=== PATIENT | male | born 1955 | race Caucasian/White ===

== ENCOUNTER 2024-11-13 11:40 | Emergency (ER) | payer MEDICARE ==
[2024-11-13 12:46] LABS: HEMATOCRIT 39.2 % (38.3-50.1); HEMOGLOBIN 13.9 g/dL (12.9-17.7); MEAN CORPUSCULAR HEMOGLOBIN 35.4 pg (27.0-33.3); MEAN CORPUSCULAR HGB CONC 35.3 g/dL (28.7-35.3); MEAN CORPUSCULAR VOLUME 100.3 fL (80.8-98.7); MEAN PLATELET VOLUME 7.4 fL (6.7-11.0); PLATELET COUNT,PLT 224 x10(3)uL (117-477); RED BLOOD CELL COUNT 3.91 x10(6)uL (3.90-5.90); RED CELL DISTRIBUTION WIDTH 14.1 % (12.4-15.0); WHITE BLOOD CELL COUNT,WBC 10.6 x10-3/uL (3.2-10.1)
[2024-11-13 12:47] LABS: BLOOD UREA NITROGEN,BUN 25 mg/dL (7-18); BUN/CREATININE RATIO 17.9 (9-20); CALCIUM 9.1 mg/dL (8.6-10.2); CARBON DIOXIDE,CO2 27 mmol/L (21-32); CHLORIDE,CL 101 mmol/L (100-110); CREATININE 1.4 mg/dL (0.70-1.30); ESTIMATED GFR 54 mL/min (>60); GLUCOSE RANDOM 101 mg/dL (80-116); POTASSIUM,K 4.5 mmol/L (3.5-5.3); SODIUM,NA 134 mmol/L (135-145)
[2024-11-13 12:49] LABS: INR 1.92 (1.00-1.24); PROTHROMBIN TIME 18.9 sec (9.0-11.1)
[2024-11-13 12:53] LABS: A/G RATIO 0.9; ALANINE AMINOTRANSFERASE,ALT 32 U/L (12-36); ALBUMIN 3.6 g/dL (3.2-4.6); ALKALINE PHOSPHATASE 48 IU/L (56-112); ASPARTATE AMNIOTRANSFERASE,AST 26 IU/L (5-25); BILIRUBIN TOTAL 0.6 mg/dL (0.1-1.3); PROTEIN TOTAL,TP 7.6 g/dL (6.0-8.0)
[2024-11-13] MEDS: Sodium Chloride 0.9% 10 ML Syringe FLUSH PRN (13:15)
[2024-11-13] MEDS: methylPREDNISolone Sodium Succinate 125 MG/2 ML SDV IVPUSH ONE (13:15)
[2024-11-13 13:18] LABS: BILIRUBIN,URINE NEGATIVE (NEGATIVE); GLUCOSE,URINE NORMAL (NORMAL); KETONES,URINE NEGATIVE (NEGATIVE); LEUKOCYTE ESTERASE,URINE NEGATIVE (NEGATIVE); NITRITE,URINE NEGATIVE (NEGATIVE); OCCULT BLOOD,URINE LARGE (NEGATIVE); PH,URINE 6.5 (5.0-6.5); PROTEIN,URINE NEGATIVE (NEGATIVE); UROBILINOGEN,URINE NORMAL (NEGATIVE)
[2024-11-13 13:22] LABS: APPEARANCE,URINE SLIGHTLY CLOUDY (CLEAR); COLOR,URINE YELLOW (YELLOW)
[2024-11-13 13:31] LABS: WBC,URINE 0-5 (0-5)
[2024-11-13 13:32] LABS: BACTERIA,URINE RARE (NS); SQUAMOUS EPITHELIAL CELLS,UR RARE (NS,R,O)
[2024-11-13 13:40] LABS: EOSINOPHILS PERCENT MAN 3 % (0-5); LYMPHOCYTES PERCENT MAN 5 % (13-37); MONOCYTES PERCENT MAN 5 % (4-12); NRBC MANUAL 1 /100WBC (0-0); SEG NEUTROPHILS PERCENT MAN 87 % (46-82)
== END 2024-11-13 13:37 | disposition home or self-care (01) ==
LOC: FB.ED 11:40
DX: C76.0 Malignant neoplasm of head, face and neck (principal); T45.1X5A Adverse effect of antineoplastic and immunosuppressive drugs, initial encounter
CPT/HCPCS: 80053; 81001; 85025; 85610; 96374; 99283; J2919

== ENCOUNTER 2024-12-10 16:23 | Inpatient (IN) | payer MEDICARE ==
[2024-12-10 17:04] LABS: HEMATOCRIT 31.4 % (38.3-50.1); MEAN CORPUSCULAR HEMOGLOBIN 35.3 pg (27.0-33.3); MEAN CORPUSCULAR HGB CONC 35.1 g/dL (28.7-35.3); MEAN CORPUSCULAR VOLUME 100.5 fL (80.8-98.7); MEAN PLATELET VOLUME 7.3 fL (6.7-11.0); PLATELET COUNT,PLT 114 x10(3)uL (117-477); RED BLOOD CELL COUNT 3.13 x10(6)uL (3.90-5.90); RED CELL DISTRIBUTION WIDTH 14.5 % (12.4-15.0); WHITE BLOOD CELL COUNT,WBC 2.8 x10-3/uL (3.2-10.1)
[2024-12-10 17:12] LABS: BLOOD UREA NITROGEN,BUN 19 mg/dL (7-18); BUN/CREATININE RATIO 15.8 (9-20); CALCIUM 9.3 mg/dL (8.6-10.2); CARBON DIOXIDE,CO2 27 mmol/L (21-32); CHLORIDE,CL 100 mmol/L (100-110); CREATININE 1.2 mg/dL (0.70-1.30); ESTIMATED GFR 65 mL/min (>60); GLUCOSE RANDOM 83 mg/dL (80-116); POTASSIUM,K 4.3 mmol/L (3.5-5.3); SODIUM,NA 134 mmol/L (135-145)
[2024-12-10 17:19] LABS: A/G RATIO 0.8; ALANINE AMINOTRANSFERASE,ALT 25 U/L (12-36); ALBUMIN 3.1 g/dL (3.2-4.6); ALKALINE PHOSPHATASE 51 IU/L (56-112); ASPARTATE AMNIOTRANSFERASE,AST 21 IU/L (5-25); BILIRUBIN TOTAL 0.5 mg/dL (0.1-1.3); MAGNESIUM 1.5 mg/dL (1.8-2.5); PROTEIN TOTAL,TP 7.2 g/dL (6.0-8.0)
[2024-12-10 17:24] LABS: BAND PERCENT MAN 9 % (0-6); EOSINOPHILS PERCENT MAN 1 % (0-5); LYMPHOCYTES PERCENT MAN 18 % (13-37); MONOCYTES PERCENT MAN 12 % (4-12); SEG NEUTROPHILS PERCENT MAN 60 % (46-82)
[2024-12-10] MEDS: Sodium Chloride 0.9% 1,000 ML IV ONE (17:37)
[2024-12-10 19:30] LABS: BILIRUBIN,URINE NEGATIVE (NEGATIVE); GLUCOSE,URINE NORMAL (NORMAL); KETONES,URINE NEGATIVE (NEGATIVE); LEUKOCYTE ESTERASE,URINE NEGATIVE (NEGATIVE); NITRITE,URINE NEGATIVE (NEGATIVE); OCCULT BLOOD,URINE MODERATE (NEGATIVE); PROTEIN,URINE NEGATIVE (NEGATIVE); UROBILINOGEN,URINE NORMAL (NEGATIVE)
[2024-12-10] MEDS: cefTRIAXone 2 GM Vial IVPUSH ONE (19:30)
[2024-12-10 19:34] LABS: APPEARANCE,URINE CLEAR (CLEAR); COLOR,URINE YELLOW (YELLOW)
[2024-12-10 19:36] LABS: BACTERIA,URINE OCCASIONAL (NS); RBC,URINE 0-5 (0-5); SQUAMOUS EPITHELIAL CELLS,UR OCCASIONAL (NS,R,O); WBC,URINE NOT SEEN (0-5)
[2024-12-10] MEDS ORDERED: Albuterol 0.083% 2.5 MG/3 ML Neb Soln NEB PRN (20:50)
[2024-12-10] MEDS ORDERED: Ondansetron 4 MG/2 ML SDV IV PRN (20:50)
[2024-12-10] MEDS ORDERED: traMADol 50 MG Tab PO PRN (21:01)
[2024-12-10] MEDS ORDERED: Prochlorperazine 5 MG Tab PO PRN (21:01)
[2024-12-10] MEDS ORDERED: [UNRECOGNIZED DRUG - OTHER] PO PRN (21:01)
[2024-12-10 21:03] LABS: INR 5.72 (1.00-1.24); PROTHROMBIN TIME 51.5 sec (9.0-11.1)
[2024-12-10] MEDS: Rosuvastatin 20 MG Tab PO SCH (22:47)
[2024-12-10] MEDS: Pantoprazole 40 MG Vial IVPUSH SCH (22:47)
[2024-12-10] MEDS: Gabapentin 300 MG Cap PO SCH (22:47)
[2024-12-10] MEDS: Donepezil 10 MG Tab PO SCH (22:47)
[2024-12-10] MEDS: traZODone 50 MG Tab PO SCH (22:48)
[2024-12-10] MEDS: Phenytoin 100 MG Cap.ER PO SCH (22:48)
[2024-12-10] MEDS: Benzonatate 100 MG Cap PO PRN (22:48)
[2024-12-10] MEDS: Albuterol/Ipratropium 3.0-0.5 MG/3 ML Neb Soln NEB SCH (22:51)
[2024-12-10] MEDS: methylPREDNISolone Sodium Succinate 40 MG/1 ML SDV IVPUSH SCH (22:54)
[2024-12-10] MEDS: Sodium Chloride 0.9% 1,000 ML IV SCH (23:03)
[2024-12-10] MEDS: Doxycycline 100 MG in Sodium Chloride 0.9% 100 ML IV SCH (23:05)
[2024-12-11] MEDS: Magnesium Oxide 400 MG Tab ONE (04:50)
[2024-12-11] MEDS: Magnesium Oxide 400 MG Tab PO SCH (04:55)
[2024-12-11] MEDS: Magnesium Sulfate 2 GM/50 mL 2 GM in Premix Bag 1 BAG IV ONE (04:55)
[2024-12-11] MEDS: DULoxetine 60 MG Cap PO SCH (06:16)
[2024-12-11 06:23] LABS: BASOPHILS PERCENT AUTO 0.6 % (0.3-3.8); EOSINOPHILS PERCENT AUTO 0.1 % (0.1-6.8); HEMATOCRIT 27.8 % (38.3-50.1); HEMOGLOBIN 9.8 g/dL (12.9-17.7); LYMPHOCYTES ABSOLUTE AUTO 0.3 x10-3/uL (0.5-4.5); LYMPHOCYTES PERCENT AUTO 8.3 % (15.8-45.3); MEAN CORPUSCULAR HEMOGLOBIN 35.4 pg (27.0-33.3); MEAN CORPUSCULAR HGB CONC 35.1 g/dL (28.7-35.3); MEAN CORPUSCULAR VOLUME 100.7 fL (80.8-98.7); MEAN PLATELET VOLUME 7.1 fL (6.7-11.0); MONOCYTES ABSOLUTE AUTO 0.3 x10-3/uL (0.0-1.2); MONOCYTES PERCENT AUTO 10.7 % (5.5-15.2); NEUTROPHILS ABSOLUTE AUTO 2.6 x10-3/uL (1.7-6.9); NEUTROPHILS PERCENT AUTO 80.3 % (40.3-71.8); PLATELET COUNT,PLT 102 x10(3)uL (117-477); RED BLOOD CELL COUNT 2.76 x10(6)uL (3.90-5.90); RED CELL DISTRIBUTION WIDTH 14.7 % (12.4-15.0); WHITE BLOOD CELL COUNT,WBC 3.3 x10-3/uL (3.2-10.1)
[2024-12-11 06:31] LABS: BLOOD UREA NITROGEN,BUN 14 mg/dL (7-18); CALCIUM 8.5 mg/dL (8.6-10.2); CARBON DIOXIDE,CO2 25 mmol/L (21-32); CHLORIDE,CL 102 mmol/L (100-110); EST CRCL DRUG DOSING (CG) 67.75 mL/min; ESTIMATED GFR 80 mL/min (>60); GLUCOSE RANDOM 90 mg/dL (80-116); POTASSIUM,K 4.5 mmol/L (3.5-5.3); SODIUM,NA 134 mmol/L (135-145)
[2024-12-11] MEDS: Cholecalciferol (Vitamin D3) 5,000 UNIT Cap PO SCH (08:42)
[2024-12-11] MEDS: amLODIPine 2.5 MG Tab PO SCH (08:44)
[2024-12-11] MEDS: Tamsulosin 0.4 MG Cap.ER PO SCH (08:44)
[2024-12-11] MEDS: Acetaminophen 325 MG Tab PO PRN (08:45)
[2024-12-11] MEDS: Fenofibrate Nanocrystallized 145 MG Tab PO SCH (08:45)
[2024-12-11] MEDS: Oxybutynin 5 MG Tab.ER PO SCH (08:46)
[2024-12-11] MEDS: Nicotine 7 MG/24 Hr Patch TOP SCH (08:53)
[2024-12-11] MEDS: Doxycycline 100 MG Vial ONE (08:58)
[2024-12-11] MEDS ORDERED: [UNRECOGNIZED DRUG - OTHER] PO SCH (09:00)
[2024-12-11] MEDS ORDERED: VITAMIN B COMP W C PO SCH (09:00)
[2024-12-11] MEDS ORDERED: FOLIC ACID PO SCH (09:00)
[2024-12-11] MEDS ORDERED: MAGNESIUM CARB PO SCH (09:00)
[2024-12-11] MEDS ORDERED: CALCIUM CARB PO SCH (09:00)
[2024-12-11] MEDS: Nystatin Susp 100,000 Unit/ML 5 ML UD Cup PO SCH (09:06)
[2024-12-11] MEDS: Sodium Chloride 0.9% 10 ML Syringe FLUSH PRN (10:00)
[2024-12-11] MEDS: Filgrastim-AYOW (Releuko) 300 MCG/0.5 ML Syringe SUBCUT ONE (11:16)
[2024-12-11] MEDS: FILGRASTIM SNDZ SUBCUT ONE (11:18)
[2024-12-11] MEDS: cefTRIAXone 2 GM Vial IVPUSH SCH (18:51)
[2024-12-12 06:35] LABS: RED CELL DISTRIBUTION WIDTH 14.8 % (12.4-15.0)
[2024-12-12 06:39] LABS: BLOOD UREA NITROGEN,BUN 11 mg/dL (7-18); CALCIUM 8.9 mg/dL (8.6-10.2); CARBON DIOXIDE,CO2 27 mmol/L (21-32); CHLORIDE,CL 104 mmol/L (100-110); CREATININE 1.1 mg/dL (0.70-1.30); EST CRCL DRUG DOSING (CG) 61.59 mL/min; ESTIMATED GFR 72 mL/min (>60); GLUCOSE RANDOM 93 mg/dL (80-116); POTASSIUM,K 4.4 mmol/L (3.5-5.3); SODIUM,NA 137 mmol/L (135-145)
[2024-12-12 06:43] LABS: HEMATOCRIT 28.7 % (38.3-50.1); HEMOGLOBIN 10.1 g/dL (12.9-17.7); MEAN CORPUSCULAR HEMOGLOBIN 35.8 pg (27.0-33.3); MEAN CORPUSCULAR HGB CONC 35.2 g/dL (28.7-35.3); MEAN CORPUSCULAR VOLUME 101.8 fL (80.8-98.7); MEAN PLATELET VOLUME 7.6 fL (6.7-11.0); PLATELET COUNT,PLT 116 x10(3)uL (117-477); RED BLOOD CELL COUNT 2.82 x10(6)uL (3.90-5.90)
[2024-12-12 07:06] LABS: BAND PERCENT MAN 9 % (0-6); LYMPHOCYTES PERCENT MAN 9 % (13-37); SEG NEUTROPHILS PERCENT MAN 71 % (46-82)
[2024-12-12 07:07] LABS: MONOCYTES PERCENT MAN 11 % (4-12)
[2024-12-12 08:48] LABS: INR 3.04 (1.00-1.24); PROTHROMBIN TIME 28.8 sec (9.0-11.1)
[2024-12-12] MEDS: Doxycycline 100 MG Vial ONE (08:52)
[2024-12-12] MEDS ORDERED: Warfarin Sliding Scale PO SCH (09:00)
[2024-12-12] MEDS ORDERED: Filgrastim-AYOW (Releuko) 300 MCG/0.5 ML Syringe SUBCUT ONE (09:00)
[2024-12-12] MEDS: Filgrastim-AYOW (Releuko) 300 MCG/0.5 ML Syringe SUBCUT ONE (09:26)
[2024-12-12] MEDS ORDERED: Warfarin 2.5 MG Tab PO ONE (16:00)
== END 2024-12-12 11:15 | disposition home or self-care (01) | DRG 194 ==
LOC: FB.ED 16:23 → FB.MS 18:59
PROVIDERS: ADMIT Emergency Medicine; ATTEND Family Medicine
DX: J18.9 Pneumonia, unspecified organism (principal); B37.0 Candidal stomatitis; D84.9 Immunodeficiency, unspecified; J44.0 Chronic obstructive pulmonary disease with (acute) lower respiratory infection; E86.0 Dehydration; C76.0 Malignant neoplasm of head, face and neck; H54.7 Unspecified visual loss; E78.00 Pure hypercholesterolemia, unspecified; I10 Essential (primary) hypertension; K21.9 Gastro-esophageal reflux disease without esophagitis; G62.9 Polyneuropathy, unspecified; F03.90 Unspecified dementia, unspecified severity, without behavioral disturbance, psychotic disturbance, mood disturbance, and anxiety; F17.200 Nicotine dependence, unspecified, uncomplicated; G47.30 Sleep apnea, unspecified; N40.0 Benign prostatic hyperplasia without lower urinary tract symptoms; D69.6 Thrombocytopenia, unspecified; R79.1 Abnormal coagulation profile; D63.0 Anemia in neoplastic disease; D70.1 Agranulocytosis secondary to cancer chemotherapy; Z79.899 Other long term (current) drug therapy; Z79.01 Long term (current) use of anticoagulants; Z86.718 Personal history of other venous thrombosis and embolism; Z98.890 Other specified postprocedural states; Z87.81 Personal history of (healed) traumatic fracture; Z85.89 Personal history of malignant neoplasm of other organs and systems
CPT/HCPCS: 36415; 71046; 80048; 80053; 81001; 83605; 83735; 85025; 85610; 86140; 87040; 94150; 94640; 96360; 99222; 99238; 99285; 99285-25; A9270-GY; J0696; J2470; J2919; J3475; J3490; J7030; Q5125; U0002

== ENCOUNTER 2024-12-17 19:07 | Emergency (ER) | payer MEDICARE, OTHER ==
[2024-12-17 19:59] LABS: HEMATOCRIT 29.6 % (38.3-50.1); HEMOGLOBIN 10.2 g/dL (12.9-17.7); MEAN CORPUSCULAR HEMOGLOBIN 35.2 pg (27.0-33.3); MEAN CORPUSCULAR HGB CONC 34.6 g/dL (28.7-35.3); MEAN CORPUSCULAR VOLUME 101.9 fL (80.8-98.7); MEAN PLATELET VOLUME 7.2 fL (6.7-11.0); PLATELET COUNT,PLT 149 x10(3)uL (117-477); RED BLOOD CELL COUNT 2.91 x10(6)uL (3.90-5.90); RED CELL DISTRIBUTION WIDTH 15.6 % (12.4-15.0); WHITE BLOOD CELL COUNT,WBC 11.6 x10-3/uL (3.2-10.1)
[2024-12-17 20:06] LABS: BLOOD UREA NITROGEN,BUN 18 mg/dL (7-18); BUN/CREATININE RATIO 12.9 (9-20); CALCIUM 8.8 mg/dL (8.6-10.2); CARBON DIOXIDE,CO2 24 mmol/L (21-32); CHLORIDE,CL 100 mmol/L (100-110); CREATININE 1.4 mg/dL (0.70-1.30); ESTIMATED GFR 54 mL/min (>60); GLUCOSE RANDOM 100 mg/dL (80-116); POTASSIUM,K 3.7 mmol/L (3.5-5.3); SODIUM,NA 135 mmol/L (135-145)
[2024-12-17 20:12] LABS: A/G RATIO 0.8; ALANINE AMINOTRANSFERASE,ALT 23 U/L (12-36); ALBUMIN 2.8 g/dL (3.2-4.6); ALKALINE PHOSPHATASE 63 IU/L (56-112); ASPARTATE AMNIOTRANSFERASE,AST 23 IU/L (5-25); BILIRUBIN TOTAL 0.4 mg/dL (0.1-1.3); PROTEIN TOTAL,TP 6.4 g/dL (6.0-8.0)
[2024-12-17 20:15] LABS: BAND PERCENT MAN 2 % (0-6); LYMPHOCYTES PERCENT MAN 3 % (13-37); MONOCYTES PERCENT MAN 6 % (4-12); SEG NEUTROPHILS PERCENT MAN 89 % (46-82)
[2024-12-17] MEDS: Sodium Chloride 0.9% 1,000 ML IV ONE (20:30)
[2024-12-17 21:28] VITALS: BP 119/58
[2024-12-17 21:29] VITALS: PULSE 62
== END 2024-12-17 21:06 | disposition home or self-care (01) ==
LOC: FB.ED 19:07
DX: S09.90XA Unspecified injury of head, initial encounter (principal); R79.1 Abnormal coagulation profile; I10 Essential (primary) hypertension; E78.00 Pure hypercholesterolemia, unspecified; Z79.01 Long term (current) use of anticoagulants; Z79.899 Other long term (current) drug therapy; W01.198A Fall on same level from slipping, tripping and stumbling with subsequent striking against other object, initial encounter
CPT/HCPCS: 36415; 70450; 80053; 85025; 85610; 99284; 99285